=== PATIENT | male | born 1975 | race Caucasian/White ===

== ENCOUNTER 2019-08-19 17:37 | Inpatient (IN) | payer OTHER ==
[~2019-08-19] VITALS: Ht 195.6 cm; Wt 127.0 kg
[2019-08-19 18:44] LABS: BASOPHILS ABSOLUTE AUTO 0.06 K/mm3 (0.00-0.23); BASOPHILS PERCENT AUTO 0 % (0-2); EOSINOPHILS ABSOLUTE AUTO 0.01 K/mm3 (0.00-0.68); EOSINOPHILS PERCENT AUTO 0 % (0-6); Hemoglobin 18.8 g/dL (13.5-17.5); IMMATURE GRAN ABSOLUTE AUTO 0.13 K/mm3 (0.00-0.10); IMMATURE GRAN PERCENT AUTO 1 % (0-1); LYMPHOCYTES ABSOLUTE AUTO 1.87 K/mm3 (0.84-5.20); LYMPHOCYTES PERCENT AUTO 7 % (21-46); MONOCYTES ABSOLUTE AUTO 1.78 K/mm3 (0.16-1.47); MONOCYTES PERCENT AUTO 7 % (4-13); Mean Corpuscular HGB 29.8 pg (26.0-34.0); Mean Corpuscular HGB Conc 35.5 g/dL (31.5-36.5); Mean Corpuscular Volume 84 fL (80-100); Mean Platelet Volume 8.8 fL (9.1-12.4); NEUTROPHILS ABSOLUTE AUTO 21.71 K/mm3 (1.96-9.15); NEUTROPHILS PERCENT AUTO 85 % (41-73); Platelet Count 311 K/mm3 (150-400); RDW Coefficient Variation 12.2 % (11.7-14.2); RDW Standard Deviation 36.7 fL (35.1-46.3); Red Blood Cell Count 6.31 M/mm3 (4.30-5.90); White Blood Cell Count 25.56 K/mm3 (4.00-11.30)
[2019-08-19 19:03] LABS: Alanine Aminotransfer (ALT/SGP 25 U/L (12-78); Albumin, Blood 3.7 g/dL (3.4-5.0); Albumin/Globulin Ratio 0.7 (0.8-1.8); Alk Phos 65 U/L (50-136); Anion Gap 13 mmol/L (6-16); Aspartate Aminotrans (AST/SGOT 10 U/L (12-37); Bilirubin, Total 1.7 mg/dL (0.1-1.0); Blood Urea Nitrogen 14 mg/dL (8-24); Bun/Creatinine Ratio 15.3 (12.0-20.0); CO2, Blood 21 mmol/L (21-32); Chloride, Blood 97 mmol/L (98-108); Creatinine, Blood 0.91 mg/dL (0.60-1.20); Globulin, Blood 5.1 g/dL (2.2-4.0); Glomerular Filtration Rate >60 (60-); Glucose, Blood 116 mg/dL (70-99); Potassium, Blood 3.5 mmol/L (3.5-5.5); Sodium, Blood 131 mmol/L (136-145); Total Protein, Blood 8.8 g/dL (6.4-8.2)
[2019-08-19 20:54] LABS: Source, Urine Clean Catch
[2019-08-19 20:57] LABS: Appearance, Urine Clear (Clear); Bilirubin, Urine Neg (Neg); Blood, Urine Neg (Neg); Color, Urine Amber (P-Yellow); Glucose Qualitative, Urine Neg (Neg); Ketones, Urine 4+ (Neg); Leukocyte Esterase, Urine Neg (Neg); Nitrite, Urine Neg (Neg); Protein, Urine 2+ (Neg); Urobilinogen, Urine 1+ (Normal)
[2019-08-19 21:10] LABS: Bacteria Mod /hpf; Red Blood Cells, Urine 0-2 /hpf (0-2); Squamous Epithelial Cells Not Seen /hpf (Few); White Blood Cells, Urine 0-2 /hpf (0-5)
--- NOTE | 2019-08-19 21:21 | NUR ---
RECEIVED HAND OFF FROM [facility] IN ER. TRANSPORTED TO ROOM 208 VIA STRETCHER WITH SPOUSE AT BEDSIDE. TRANSFERED SELF TO BED WITH STANDBY ASSIST, TOLERATED WELL. AAO X3, [place], FOLLOWS ALL COMMANDS. ORIENTED TO ROOM, CALL SYSTEM, AND POC, VOICES UNDERSTANDING. RESPIRATIONS EVEN AND UNLABORED ON ROOM AIR. LUNG SOUNDS CLEAR BILATERALLY. ABDOMEN DISTENEDD AND TENDER WITH HYPOACTIVE BOWEL SOUNDS NOTED IN ALL QUADS. RIGHT SHOULDER 22G PIV IS PATENT, FLUSHING WITH EASE. CONTINENT OF BOWEL AND BLADDER. URINAL PLACED AT BEDSIDE. PT IS ORDERED NPO, ORAL CARE PRODUCTS PROVIDED. STATES CURRENT PAIN LEVEL OF 8/10. WILL MEDICATE PER EMAR. DENIES FURTHER NEEDS OR WANTS AT THIS TIME. ADMISSION ASSESSMENT INPROGRESS. SAFETY MEASURES IN PLACE. WILL CONTINUE TO MONITOR.
--- NOTE | 2019-08-20 06:34 | NUR ---
LYING IN SEMI FOWLERS WITH EYES OPEN. HAS TRIED TO REST, BUT PAIN MANAGEMENT HAS BEEN DIFFICULT. STATES THAT HE FEELS LIKE THE LEVEL GOES UP HE IS JUST STARTING TO REST. SAYS HE FEELS READY TO HAVE SURGERY. WILL GIVE HAND OFF TO ONCOMING SHIFT USING SBAR.
--- NOTE | 2019-08-20 11:46 | NUR ---
Patient up to Ambulate independently. Gait steady. Surgical site prepped with 2% Chlorhexidine cloth wipe. History, Chart, Medications and Allergies reviewed before start of procedure.History, Chart, Medications and Allergies reviewed before start of procedure.Lungs clear T/O to Auscultation. Patient confirms NPO status and agrees with scheduled surgery.ALL BELONINGS LEFT IN ROOM.
--- NOTE | 2019-08-20 13:30 | NUR ---
08/20/19 1330 Travis Calderon ALL CHARTING PER PERLITA HIRSCHC
--- NOTE | 2019-08-20 16:12 | NUR ---
PT BACK FROM SURGERY ABOUT 1540. PT A/O. HUMPHRIES IN PLACE, DRAINING. REPORTS TOLERABLE PAIN. LAP SITES ON ABD. WITH GAUZE AND ONE COLBY DRAIN. FAMILY AT BEDSIDE. AT 1615 PT AMBULATING IN ON RA, TOLERATING WELL. TOLERATING SIPS OF ICE WATER.
--- NOTE | 2019-08-20 18:16 | NUR ---
SHIFT SUMMARY PT HAD LAP APPY TODAY WITH DR SOUTH. PT HAS 3 LAP SITES CDI AND COLBY DRAIN. PT HAD SOME PAIN AND WAS MED PER ORDERS. TOLERATING CLEAR LIQUIDS, AMBULATING IND. A/O X4.
[2019-08-21 04:52] LABS: BASOPHILS ABSOLUTE AUTO 0.02 K/mm3 (0.00-0.23); BASOPHILS PERCENT AUTO 0 % (0-2); EOSINOPHILS ABSOLUTE AUTO 0.01 K/mm3 (0.00-0.68); EOSINOPHILS PERCENT AUTO 0 % (0-6); Hematocrit 43.4 % (37.0-53.0); Hemoglobin 14.7 g/dL (13.5-17.5); IMMATURE GRAN ABSOLUTE AUTO 0.07 K/mm3 (0.00-0.10); IMMATURE GRAN PERCENT AUTO 1 % (0-1); LYMPHOCYTES ABSOLUTE AUTO 0.91 K/mm3 (0.84-5.20); LYMPHOCYTES PERCENT AUTO 6 % (21-46); MONOCYTES ABSOLUTE AUTO 0.87 K/mm3 (0.16-1.47); MONOCYTES PERCENT AUTO 6 % (4-13); Mean Corpuscular HGB 29.6 pg (26.0-34.0); Mean Corpuscular HGB Conc 33.9 g/dL (31.5-36.5); Mean Platelet Volume 8.8 fL (9.1-12.4); NEUTROPHILS ABSOLUTE AUTO 12.71 K/mm3 (1.96-9.15); NEUTROPHILS PERCENT AUTO 87 % (41-73); Platelet Count 217 K/mm3 (150-400); RDW Coefficient Variation 12.3 % (11.7-14.2); RDW Standard Deviation 39.3 fL (35.1-46.3); Red Blood Cell Count 4.97 M/mm3 (4.30-5.90); White Blood Cell Count 14.59 K/mm3 (4.00-11.30)
[2019-08-21 04:54] LABS: Mean Corpuscular Volume 87 fL (80-100)
[2019-08-21 05:10] LABS: Anion Gap 8 mmol/L (6-16); Blood Urea Nitrogen 12 mg/dL (8-24); Bun/Creatinine Ratio 12.8 (12.0-20.0); CO2, Blood 26 mmol/L (21-32); Calcium, Blood 8.5 mg/dL (8.5-10.1); Chloride, Blood 104 mmol/L (98-108); Creatinine, Blood 0.94 mg/dL (0.60-1.20); Glomerular Filtration Rate >60 (60-); Glucose, Blood 117 mg/dL (70-99); Potassium, Blood 3.8 mmol/L (3.5-5.5); Sodium, Blood 138 mmol/L (136-145)
--- NOTE | 2019-08-21 06:42 | NUR ---
SHIFT SUMMARY: PT POD #1 FOR LAP APPI. GAUZE SITES CDI W/O DRG. COLBY DRAINING SS FLUID. EMPTIED TWICE THIS SHIFT. PAIN MANAGED WITH IV DILAUDID AND OXYCODONE PER EMAR. GIVEN ZOFRAN FOR NAUSEA. NO EMESIS. PT UP IN ROOM INDEPENDENTLY AND AMBULATING HALLWAY. VOIDING WELL. PT REPORTS PASSING A SML AMOUNT OF FLATUS THIS AM. HYPOACTIVE BT. ABD WITH MODERATE DISTENTION. FLUIDS INFUSING PER EMAR.
--- NOTE | 2019-08-21 11:49 | NUR ---
DR HICKEY HERE RECENTLY TO SEE PT.
--- NOTE | 2019-08-21 14:30 | NUR ---
POWER GLIDE. PLACED POWER GLIDE EXTENDED DWELL CATHETER R/T DIFFICULT IV ACCESS AND NEED FOR IV ANTIBX. LUZ MARINA TORREZ, RN, STARTED PROCEDURE BUT WAS UNABLE TO ACCESS VEIN, THIS RN TOOK OVER AND ACCESSED THE L BASILIC VEIN. PT TOLERATED WITH MINIMAL PAIN. PG FLUSHES EASILY AND HAS POSITIVE BLOOD RETURN.
--- NOTE | 2019-08-21 18:10 | NUR ---
SHIFT SUMMARY PT IS DRINKING SOME WATER. PT BEEN HAVING NAUSEA OFF AND ON. PT BEEN MED FOR NAUSEA. DR HICKEY WAS NOTIFIED, SEE ORDER. PT HAD NAP THIS AFTERNOON. PT AMBULATED IN HALLWAY WITH ANDREWT TIMES TODAY. PT UP IND WITH STEADY GAIT. PT HAS PAS TO BLE HE NOW HAS A POWERGLIDE IN HIS HENRY THAT WAS PLACED TODAY. PT BEEN HAVING IVF AND ABX ORDERED. PT BEEN ASSISTED WITH ADL'S PRN. DISCUSSED PAIN MGMT/NAUSEA MEDICATION.
--- NOTE | 2019-08-22 16:05 | NUR ---
DR HICKEY HERE RECENTLY TO SEE PT. SUMAYA'Maico CLOBY DRAIN. REPORTED MAY S.L. PT. WILL MED PT PRN FOR PAIN.
--- NOTE | 2019-08-22 19:21 | NUR ---
SHIFT SUMMARY PT TOLERATING C.L. BETTER TODAY PER PT. PT PASSING GAS, VOIDING. PT BEEN ASSISTED WITH ADL'S PRN. PT MED PRN FOR PAIN PER PT REQ. PT UP AND AMBULATED IN HALLWAY WITH STEADY GAIT. WAS HERE AND SUMAYA'Maico COLBY TODAY. PT HAD BM TODAY.
--- NOTE | 2019-08-23 05:13 | NUR ---
SHIFT SUMMARY PT CONTINUES TO TOLERATE CLEAR LIQUIDS. ONLY EXPERIENCES NAUSEA AFTER RECIEVING PAIN MEDS. ADMINISTERING ANTIEMETICS AND PAIN MEDS TOGETHER TO PREVENT NAUSEA. DRESSING TO LLQ FROM OLD DRAIN SITE C/D/I. PT REPORTS PAIN IN ABD IS A CRAMPING FEELING, RESOLVED BY 1MG PRN DILAUDID 3X AND 10 MG OXY 1X. PT HAD A BM TONIGHT. WILL CONT TO MONITOR AND PROVIDE CARE UNTIL PRESUMED BY ONCOMING RN.
[2019-08-23 12:08] LABS: BASOPHILS ABSOLUTE AUTO 0.04 K/mm3 (0.00-0.23); BASOPHILS PERCENT AUTO 0 % (0-2); EOSINOPHILS PERCENT AUTO 1 % (0-6); Hematocrit 46.4 % (37.0-53.0); IMMATURE GRAN PERCENT AUTO 1 % (0-1); LYMPHOCYTES ABSOLUTE AUTO 1.25 K/mm3 (0.84-5.20); LYMPHOCYTES PERCENT AUTO 12 % (21-46); MONOCYTES ABSOLUTE AUTO 1.02 K/mm3 (0.16-1.47); MONOCYTES PERCENT AUTO 10 % (4-13); Mean Corpuscular HGB 29.5 pg (26.0-34.0); Mean Corpuscular HGB Conc 32.3 g/dL (31.5-36.5); Mean Platelet Volume 8.3 fL (9.1-12.4); NEUTROPHILS ABSOLUTE AUTO 7.82 K/mm3 (1.96-9.15); NEUTROPHILS PERCENT AUTO 76 % (41-73); Platelet Count 254 K/mm3 (150-400); RDW Standard Deviation 40.4 fL (35.1-46.3); Red Blood Cell Count 5.09 M/mm3 (4.30-5.90); White Blood Cell Count 10.33 K/mm3 (4.00-11.30)
[2019-08-23 12:19] LABS: Mean Corpuscular Volume 91 fL (80-100)
[2019-08-23] MEDS ORDERED: Percocet 5-3251 EACH PO (14:53)
[2019-08-23] MEDS ORDERED: AMOCLA875 PO (14:53)
--- NOTE | 2019-08-23 16:27 | NUR ---
D/C NOTE PT D/C INSTRUCTIONS GIVEN BY RN TO PT AND FAMILY. REPORTS UNDERSTANDING. PERSONAL BELONGINGS SENT WITH PT. REPORTS NO CONCERNS. TOLERATING PO INTAKE, PASSING GAS AND SM BM'S. PT ESCORTED TO VEHICLE WITH LEAD OPERATOR. IS DRIVING HOME.
== END 2019-08-23 16:33 | disposition home or self-care (01) | DRG 853 ==
LOC: ER 17:37 → SURS 19:56
PROVIDERS: Physician Assistant; Surgery; ADMIT Surgery
PROC: 0DTJ4ZZ Resection of Appendix, Percutaneous Endoscopic Approach (ICD-10-PCS; principal; 2019-08-20 12:00)
DX: A41.9 Sepsis, unspecified organism (principal); K35.33 Acute appendicitis with perforation, localized peritonitis, and gangrene, with abscess
CPT/HCPCS: 36415; 74177; 80048; 80053; 81001; 83605; 83690; 85025; 87086; 96361; 96365-59; 96375; 99285-25; J1100; J1170; J1650; J1885; J2250; J2405; J2543; J2704; J2765; J3010; J7030; J7050; J7120; Q9967

== ENCOUNTER 2019-08-26 07:31 | Inpatient (IN) | payer OTHER ==
[~2019-08-26] VITALS: Ht 195.6 cm; Wt 119.5 kg
[~2019-08-26 07:31] MED LIST: AMOCLA875 PO; Percocet 5-3251 EACH PO
[2019-08-26 09:09] LABS: BASOPHILS ABSOLUTE AUTO 0.05 K/mm3 (0.00-0.23); BASOPHILS PERCENT AUTO 1 % (0-2); EOSINOPHILS ABSOLUTE AUTO 0.14 K/mm3 (0.00-0.68); EOSINOPHILS PERCENT AUTO 2 % (0-6); Hematocrit 44.1 % (37.0-53.0); Hemoglobin 15.1 g/dL (13.5-17.5); IMMATURE GRAN ABSOLUTE AUTO 0.14 K/mm3 (0.00-0.10); IMMATURE GRAN PERCENT AUTO 2 % (0-1); LYMPHOCYTES ABSOLUTE AUTO 1.29 K/mm3 (0.84-5.20); LYMPHOCYTES PERCENT AUTO 15 % (21-46); MONOCYTES ABSOLUTE AUTO 0.64 K/mm3 (0.16-1.47); MONOCYTES PERCENT AUTO 7 % (4-13); Mean Corpuscular HGB 29.4 pg (26.0-34.0); Mean Corpuscular HGB Conc 34.2 g/dL (31.5-36.5); Mean Platelet Volume 8.9 fL (9.1-12.4); NEUTROPHILS ABSOLUTE AUTO 6.49 K/mm3 (1.96-9.15); NEUTROPHILS PERCENT AUTO 74 % (41-73); Platelet Count 330 K/mm3 (150-400); RDW Coefficient Variation 11.8 % (11.7-14.2); Red Blood Cell Count 5.14 M/mm3 (4.30-5.90); White Blood Cell Count 8.75 K/mm3 (4.00-11.30)
[2019-08-26 09:10] LABS: Mean Corpuscular Volume 86 fL (80-100)
[2019-08-26 09:26] LABS: Alanine Aminotransfer (ALT/SGP 31 U/L (12-78); Albumin, Blood 2.7 g/dL (3.4-5.0); Albumin/Globulin Ratio 0.6 (0.8-1.8); Alk Phos 58 U/L (50-136); Anion Gap 12 mmol/L (6-16); Aspartate Aminotrans (AST/SGOT 16 U/L (12-37); Bilirubin, Total 0.7 mg/dL (0.1-1.0); Blood Urea Nitrogen 11 mg/dL (8-24); Bun/Creatinine Ratio 13.4 (12.0-20.0); CO2, Blood 22 mmol/L (21-32); Calcium, Blood 8.9 mg/dL (8.5-10.1); Chloride, Blood 105 mmol/L (98-108); Creatinine, Blood 0.82 mg/dL (0.60-1.20); Globulin, Blood 4.7 g/dL (2.2-4.0); Glomerular Filtration Rate >60 (60-); Glucose, Blood 88 mg/dL (70-99); Potassium, Blood 3.3 mmol/L (3.5-5.5); Sodium, Blood 139 mmol/L (136-145); Total Protein, Blood 7.4 g/dL (6.4-8.2)
[2019-08-26 14:13] LABS: Source, Urine Clean Catch
[2019-08-26 14:25] LABS: Bilirubin, Urine Neg (Neg); Blood, Urine Neg (Neg); Glucose Qualitative, Urine Neg (Neg); Ketones, Urine 4+ (Neg); Leukocyte Esterase, Urine Neg (Neg); Nitrite, Urine Neg (Neg); Protein, Urine Neg (Neg); Specific Gravity, Urine 1.015 (1.003-1.022); Urobilinogen, Urine NORM (Normal)
[2019-08-26 14:52] LABS: Appearance, Urine Clear (Clear); Color, Urine Yellow (P-Yellow)
--- NOTE | 2019-08-26 18:37 | NUR ---
SHIFT SUMMARY PT A&OX4, POD5 LAP APPY 3 [place] LAP SITES CDI. PT HAS BEEN N&V SINCE ADMIT AT 1500; ZOFRAN GIVEN X3. PAIN 01/31; NEW ORDER FOR DILAUDID, WILL GIVE PER EMAR. CALLS APPROPRIATELY. WILL REPORT TO ONCOMING NOC RN.
--- NOTE | 2019-08-26 19:53 | NUR ---
1952: PT CONTINUES TO HAVE SEVERE N/V AND ZOFRAN X3 UNEFFECTIVE RELIEF. PT MADE STRICT NPO STATUS AFTER CONTINUING TO TAKE IN LOTS OF ICE CHIPS. NEW ORERS FOR PHENERGAN RECEIVED FROM DR. LEPE.
--- NOTE | 2019-08-27 18:08 | NUR ---
SHIFT SUMMARY PT A/OX4 T/O SHIFT. VSS W/HTN, DOCTOR AWARE. C/O N/V; MEDICATED PER EMAR. ABLE TO REST DURING MOST OF DAY. DECLINED CL, ONLY TOLERATING SMALL SIPS OF WATER AND ICE CHIPS AT THIS TIME. ABX AND IVF GIVEN PER ORDER. AT BEDSIDE AT THIS TIME. PT HAS CALL LIGHT WITHIN REACH. WILL CONT TO MONITOR AND GIVE REPORT TO ON COMING RN.
--- NOTE | 2019-08-27 18:14 | NUR ---
PICC NURSE CURRENTLY IN WITH PATIENT AT THIS TIME. SPOUSE AT BEDSIDE.
[2019-08-28 05:11] LABS: BASOPHILS ABSOLUTE AUTO 0.03 K/mm3 (0.00-0.23); BASOPHILS PERCENT AUTO 0 % (0-2); EOSINOPHILS ABSOLUTE AUTO 0.02 K/mm3 (0.00-0.68); EOSINOPHILS PERCENT AUTO 0 % (0-6); Hematocrit 45.3 % (37.0-53.0); Hemoglobin 15.3 g/dL (13.5-17.5); IMMATURE GRAN ABSOLUTE AUTO 0.12 K/mm3 (0.00-0.10); IMMATURE GRAN PERCENT AUTO 1 % (0-1); LYMPHOCYTES ABSOLUTE AUTO 1.19 K/mm3 (0.84-5.20); LYMPHOCYTES PERCENT AUTO 9 % (21-46); MONOCYTES ABSOLUTE AUTO 0.95 K/mm3 (0.16-1.47); MONOCYTES PERCENT AUTO 7 % (4-13); Mean Corpuscular HGB 29.6 pg (26.0-34.0); Mean Corpuscular HGB Conc 33.8 g/dL (31.5-36.5); Mean Corpuscular Volume 88 fL (80-100); Mean Platelet Volume 8.7 fL (9.1-12.4); NEUTROPHILS ABSOLUTE AUTO 10.77 K/mm3 (1.96-9.15); NEUTROPHILS PERCENT AUTO 82 % (41-73); Platelet Count 358 K/mm3 (150-400); RDW Coefficient Variation 11.7 % (11.7-14.2); RDW Standard Deviation 37.7 fL (35.1-46.3); Red Blood Cell Count 5.17 M/mm3 (4.30-5.90); White Blood Cell Count 13.08 K/mm3 (4.00-11.30)
[2019-08-28 05:42] LABS: Anion Gap 7 mmol/L (6-16); Blood Urea Nitrogen 12 mg/dL (8-24); Bun/Creatinine Ratio 13.6 (12.0-20.0); CO2, Blood 26 mmol/L (21-32); Calcium, Blood 9.1 mg/dL (8.5-10.1); Chloride, Blood 102 mmol/L (98-108); Creatinine, Blood 0.88 mg/dL (0.60-1.20); Glomerular Filtration Rate >60 (60-); Glucose, Blood 123 mg/dL (70-99); Potassium, Blood 3.5 mmol/L (3.5-5.5); Sodium, Blood 135 mmol/L (136-145)
--- NOTE | 2019-08-28 07:32 | NUR ---
DR. SOUTH IN TO SEE PT DR. SOUTH IN TO SEE PT AT THIS TIME. PLAN TO REPEAT CT SCAN TODAY.
--- NOTE | 2019-08-28 08:26 | NUR ---
SUMMARY PT REQUESTED PHENERGAN TO BE CHANGED TO Q 4 HR. ALSO HAVING HTN.FAITH RN CALLED AND SPOKE WITH . NOT WANTING TO CHANGE PHENERGAN, WANTS ALTERNATING WITH ZOFRAN IF NEED. IV HYDRALAZINE ORDERED. BP MED WAS GIVEN X2 THIS SHIFT WITH LITTLE EFFECT NOTED.ALSO PT WITH FREQ COUGHING UP OF CLR-WHITE MUCUS THIS SHIFT WHICH APPEARS TO BE INCREASING NAUSEA.I ADVISED DR SOUTH OF ABOVE WHEN HE MADE ROUNDS THIS AM.
--- NOTE | 2019-08-28 09:15 | NUR ---
PT TO CT AT THIS TIME.
--- NOTE | 2019-08-28 09:29 | NUR ---
PT BACK FROM CT.
--- NOTE | 2019-08-28 19:00 | NUR ---
SHIFT SUMMARY NO ACUTE CHANGES TODAY. C/O NAUSEA, MEDICATED PER EMAR. CONSUMES SMALL AMOUNTS OF WATER AND CL ENSURE DRINKS. BLOOD PRESSURE ELEVATED, AWARE AND MEDICATED PER EMAR. HAD C/T TODAY. SPOUSE AT BEDSIDE T/O MOST OF SHIFT. PICC IN PLACE WITH IVF/ABX ORDERED. PT IS CURRENTLY WATCHING TV WITH CALL LIGHT IN HAND. BEDSIDE REPORT GIVEN TO ON COMING RN.
--- NOTE | 2019-08-29 07:35 | NUR ---
SUMMARY PT REPORTS FEELING BETTER TONIGHT. STILL REQUIRING IV DILAUDID,PHENERGAN, ZOFRAN.EMESIS 100 ML X1. PT ALSO CONT WITH HTN. IV HYDRALAZINE NOT EFFECTIVE. DAY RN AGREES TO FOLLOW UP.
--- NOTE | 2019-08-29 10:48 | NUR ---
1028 PT REQUESTS PHENERGAN FOR NAUSEA. PT CLEARING THROAT AND SPITTING CLEAR MUCOUS INTO EMESIS BAG
[2019-08-29 14:15] LABS: U Amphetamine Screen Not Detected; U Barbituate Screen Not Detected; U Benzodiazapine Screen Not Detected; U Buprenorphine Screen Not Detected; U Cannabinoids Screen DETECTED; U Cocaine Screen Not Detected; U Methadone Screen Not Detected; U Methamphetamine Screen Not Detected; U Opiates Screen Not Detected; U Oxycodone Screen Not Detected; U Phencyclidine Screen Not Detected; U Propoxyphene Screen Not Detected
[2019-08-29 15:18] LABS: Triglycerides 2089 mg/dL (30-160)
--- NOTE | 2019-08-29 18:44 | NUR ---
summary patient reports nausea throughout shift, patient seeen frequently rinsing mouth and spitting into emesis bag when asked if he has thrown up patient tells me "just foam" . patient states he feels much better today than he did yesterday. patient up independently to restroom, ambulated in farfan x1, steady on feet
--- NOTE | 2019-08-29 22:27 | NUR ---
ASSUMED CARE FROM [facility]OR[facility] [address] AT 1000. PT JUST MEDICATED FOR PAIN + NAUSEA, SITTING UP IN BED WATCHING TV, REPORTING DISCOMFORT + NAUSEA CONTROLLED AT THIS TIME. NADN. CALL LIGHT IN REACH.
[2019-08-30 04:12] LABS: BASOPHILS ABSOLUTE AUTO 0.05 K/mm3 (0.00-0.23); BASOPHILS PERCENT AUTO 0 % (0-2); EOSINOPHILS ABSOLUTE AUTO 0.05 K/mm3 (0.00-0.68); EOSINOPHILS PERCENT AUTO 0 % (0-6); Hematocrit 47.3 % (37.0-53.0); Hemoglobin 15.9 g/dL (13.5-17.5); IMMATURE GRAN ABSOLUTE AUTO 0.14 K/mm3 (0.00-0.10); IMMATURE GRAN PERCENT AUTO 1 % (0-1); LYMPHOCYTES ABSOLUTE AUTO 1.55 K/mm3 (0.84-5.20); LYMPHOCYTES PERCENT AUTO 12 % (21-46); MONOCYTES ABSOLUTE AUTO 0.97 K/mm3 (0.16-1.47); MONOCYTES PERCENT AUTO 8 % (4-13); Mean Corpuscular HGB 29.1 pg (26.0-34.0); Mean Corpuscular HGB Conc 33.6 g/dL (31.5-36.5); Mean Corpuscular Volume 87 fL (80-100); NEUTROPHILS ABSOLUTE AUTO 9.97 K/mm3 (1.96-9.15); NEUTROPHILS PERCENT AUTO 78 % (41-73); Platelet Count 359 K/mm3 (150-400); Red Blood Cell Count 5.47 M/mm3 (4.30-5.90); White Blood Cell Count 12.73 K/mm3 (4.00-11.30)
[2019-08-30 04:33] LABS: Alanine Aminotransfer (ALT/SGP 53 U/L (12-78); Albumin/Globulin Ratio 0.7 (0.8-1.8); Alk Phos 61 U/L (50-136); Anion Gap 6 mmol/L (6-16); Aspartate Aminotrans (AST/SGOT 25 U/L (12-37); Bilirubin, Total 0.8 mg/dL (0.1-1.0); Blood Urea Nitrogen 17 mg/dL (8-24); Bun/Creatinine Ratio 18.3 (12.0-20.0); CO2, Blood 26 mmol/L (21-32); Chloride, Blood 104 mmol/L (98-108); Creatinine, Blood 0.93 mg/dL (0.60-1.20); Globulin, Blood 4.3 g/dL (2.2-4.0); Glomerular Filtration Rate >60 (60-); Glucose, Blood 112 mg/dL (70-99); Magnesium, Blood 2.3 mg/dL (1.6-2.4); Potassium, Blood 3.8 mmol/L (3.5-5.5); Sodium, Blood 136 mmol/L (136-145); Total Protein, Blood 7.3 g/dL (6.4-8.2); Triglycerides 136 mg/dL (30-160)
--- NOTE | 2019-08-30 06:18 | NUR ---
SHIFT SUMMARY PT RESTING WELL THIS AM. AAOX4/ANXIOUS. DISCOMFORT CONTROLLED WITH 1MG IV DILAUDID X1 THIS SHIFT. NAUSEA CONTROLLED WITH 25MG PHENERGAN Q6 T/O SHIFT. PT REPORTING SMALL AMOUNTS OF CLEAR LIQUID EMESIS THIS SHIFT WITH NO EMESIS WITNESSED BY NURSING STAFF. CLINIMIX + IVF / ABX INFUSING PER ORDERS. ABD INCISIONS FROM PREVIOUS SURGERY HEALING WITH SCABS IN PLACE. PT RESTING AT THIS TIME, NADN, WITH CALL LIGHT IN REACH.
--- NOTE | 2019-08-30 11:06 | NUR ---
REPORT GIVEN TO GABE HIRSCH TO ASSUME CARE.
[2019-08-30] MEDS ORDERED: Augmentin 875-1 EACH PO ×2 (13:19)
[2019-08-30] MEDS ORDERED: ONDA4ODT MM ×2 (13:20)
[2019-08-30] MEDS ORDERED: METO10 PO ×2 (13:47)
--- NOTE | 2019-08-30 15:04 | NUR ---
NEW RX FOR REGLAN CALLED IN TO [facility] PER PT REQUEST. SPOUSE VERBALIZED THAT SHE PICKED UP AUGMENTIN ABX.
--- NOTE | 2019-08-30 15:14 | NUR ---
PT DC TO HOME WITH SIGNIFICANT OTHER. PT WAS ESCORTED TO A PERSONAL VEHICLE VIA W/C. D/C INSTRUCTIONS GIVEN. RX WERE PICKED UP BY SIGNIFICANT OTHER AT THE PHARMACY. PT ENC TO F/U JONATHAN FOR ANY PROBLEMS OR CONCERNS. RESP UNLABORED, VSS
[2019-08-31] MEDS ORDERED: OXYC5 PO (17:38)
[2019-08-31] MEDS ORDERED: PROM25 PO (19:18)
[2019-08-31] MEDS ORDERED: Flomax0.4 MG PO (19:18)
== END 2019-08-30 15:06 | disposition home or self-care (01) | DRG 863 ==
LOC: ER 07:31 → SURS 15:01
PROVIDERS: Nurse Practitioner Acute Care; Physician Assistant; Surgery; ADMIT Surgery
PROC: 02H633Z Insertion of Infusion Device into Right Atrium, Percutaneous Approach (ICD-10-PCS; principal; 2019-08-27)
DX: K68.11 Postprocedural retroperitoneal abscess (principal); E46 Unspecified protein-calorie malnutrition; I10 Essential (primary) hypertension; E88.09 Other disorders of plasma-protein metabolism, not elsewhere classified
CPT/HCPCS: 36415; 36569; 71045; 74177; 80048; 80053; 81003; 83690; 83735; 84478; 85025; 96361; 96365-59; 96375; 99285-25; C1751; J0360; J1170; J1650; J2060; J2405; J2543; J2550; J2765; J7030; J7040; Q9967

== ENCOUNTER 2019-08-31 15:48 | Emergency (ER) | payer OTHER ==
[~2019-08-31] VITALS: Ht 195.6 cm; Wt 117.9 kg
[~2019-08-31 15:48] MED LIST changes: +Augmentin 875-1 EACH PO; +METO10 PO; +ONDA4ODT MM
[2019-08-31 16:24] LABS: BASOPHILS ABSOLUTE AUTO 0.06 K/mm3 (0.00-0.23); BASOPHILS PERCENT AUTO 0 % (0-2); EOSINOPHILS ABSOLUTE AUTO 0.08 K/mm3 (0.00-0.68); EOSINOPHILS PERCENT AUTO 1 % (0-6); Hematocrit 51.5 % (37.0-53.0); IMMATURE GRAN ABSOLUTE AUTO 0.11 K/mm3 (0.00-0.10); IMMATURE GRAN PERCENT AUTO 1 % (0-1); LYMPHOCYTES ABSOLUTE AUTO 1.82 K/mm3 (0.84-5.20); LYMPHOCYTES PERCENT AUTO 12 % (21-46); MONOCYTES ABSOLUTE AUTO 0.91 K/mm3 (0.16-1.47); MONOCYTES PERCENT AUTO 6 % (4-13); Mean Corpuscular HGB 29.6 pg (26.0-34.0); Mean Corpuscular Volume 85 fL (80-100); Mean Platelet Volume 9.6 fL (9.1-12.4); NEUTROPHILS PERCENT AUTO 80 % (41-73); Platelet Count 433 K/mm3 (150-400); RDW Coefficient Variation 11.8 % (11.7-14.2); RDW Standard Deviation 35.5 fL (35.1-46.3); Red Blood Cell Count 6.08 M/mm3 (4.30-5.90); White Blood Cell Count 14.88 K/mm3 (4.00-11.30)
[2019-08-31 16:31] LABS: Source, Urine Clean Catch
[2019-08-31 16:36] LABS: Bilirubin, Urine Neg (Neg); Blood, Urine 5+ (Neg); Glucose Qualitative, Urine Neg (Neg); Ketones, Urine 3+ (Neg); Leukocyte Esterase, Urine 1+ (Neg); Nitrite, Urine Neg (Neg); Protein, Urine 2+ (Neg); Specific Gravity, Urine 1.015 (1.003-1.022); Urobilinogen, Urine 2+ (Normal); pH, Urine 6.5 (5.0-8.0)
[2019-08-31 16:46] LABS: Appearance, Urine Cloudy (Clear); Color, Urine Yellow (P-Yellow)
[2019-08-31 16:47] LABS: Bacteria Mod /hpf; Mucus Light (0-Heavy); Red Blood Cells, Urine 50-100 /hpf (0-2); Squamous Epithelial Cells Rare /hpf (Few)
[2019-08-31 17:20] LABS: Alanine Aminotransfer (ALT/SGP 72 U/L (12-78); Albumin, Blood 3.5 g/dL (3.4-5.0); Albumin/Globulin Ratio 0.7 (0.8-1.8); Alk Phos 78 U/L (50-136); Anion Gap 12 mmol/L (6-16); Aspartate Aminotrans (AST/SGOT 43 U/L (12-37); Bilirubin, Total 1.2 mg/dL (0.1-1.0); Blood Urea Nitrogen 20 mg/dL (8-24); Bun/Creatinine Ratio 20.5 (12.0-20.0); CO2, Blood 17 mmol/L (21-32); Calcium, Blood 9.3 mg/dL (8.5-10.1); Chloride, Blood 102 mmol/L (98-108); Creatinine, Blood 0.97 mg/dL (0.60-1.20); Globulin, Blood 5.2 g/dL (2.2-4.0); Glomerular Filtration Rate >60 (60-); Glucose, Blood 97 mg/dL (70-99); Potassium, Blood 4.1 mmol/L (3.5-5.5); Sodium, Blood 131 mmol/L (136-145); Total Protein, Blood 8.7 g/dL (6.4-8.2)
[2019-08-31] MEDS ORDERED: OXYC5 PO (17:38)
[2019-08-31] MEDS ORDERED: Flomax0.4 MG PO (19:18)
[2019-08-31] MEDS ORDERED: PROM25 PO (19:18)
== END 2019-08-31 19:47 | disposition home or self-care (01) ==
LOC: ER 15:48
PROVIDERS: Physician Assistant
DX: N13.2 Hydronephrosis with renal and ureteral calculous obstruction (principal); E87.1 Hypo-osmolality and hyponatremia; D72.829 Elevated white blood cell count, unspecified; Z88.6 Allergy status to analgesic agent; Z90.49 Acquired absence of other specified parts of digestive tract
CPT/HCPCS: 36415; 74177; 80053; 81001; 83690; 85025; 87086; 96361; 96365-59; 96375; 96376; 99284-25; A9270; J0696; J1170; J1885; J2550; J3010; J7030; Q9967